=== PATIENT | female | born 1970 ===

== ENCOUNTER 2022-07-07 16:41 | Emergency (ER) | payer BC ==
[~2022-07-07] VITALS: Ht 162.6 cm; Wt 69.4 kg
[2022-07-07] MEDS ORDERED: VITAMIN D3 (17:29)
[2022-07-07] MEDS ORDERED: IRON (17:29)
[2022-07-07] MEDS ORDERED: LEVO50TA8 PO (17:29)
[2022-07-07] MEDS ORDERED: DEXAMETHASONE SOD PHOSPHATE 4 MG INJ IM ONE (18:00)
[2022-07-07] MEDS ORDERED: KETOROLAC TROMETHAMINE 15 MG INJ IM ONE (18:00)
[2022-07-07] MEDS ORDERED: KETOROLAC TROMETHAMINE 15 MG INJ ONE (18:12)
[2022-07-07] MEDS ORDERED: DEXAMETHASONE SOD PHOSPHATE 10 MG INJ ONE (18:13)
[2022-07-07] MEDS ORDERED: PRED20TA PO (18:40)
--- NOTE | 2022-07-07 19:17 | NUR ---
pt given RX and d/c instructions, pt verbalized understanding.
== END 2022-07-07 19:15 | disposition home or self-care (01) ==
LOC: ER 16:43
DX: M79.672 Pain in left foot (principal); Z79.899 Other long term (current) drug therapy
CPT/HCPCS: 73610; 73630; A4663; J1100; J1885